=== PATIENT | female | born 1965 | race Caucasian/White ===

== ENCOUNTER 2024-06-16 06:55 | Emergency (ER) | payer OTHER, SELFPAY ==
[2024-06-16 07:01] VITALS: BP 144/111; PULSE 87; RESP 20; TEMP 36; O2SAT 97; BMI 28.2
[2024-06-16] MEDS: Morphine Sulfate Immed Release 15 MG TABLET PO (07:27)
[2024-06-16] MEDS: diazePAM 5 MG TABLET PO (07:27)
--- NOTE | 2024-06-16 07:27 | ED.BACK ---
HPI - Back Pain/Injury General Chief Complaint: Back Pain/Injury Stated Complaint: Back pain Time Seen by Provider: 06/16/24 07:07 Source: patient and family Mode of arrival: ambulatory Limitations: no limitations History of Present Illness ED Provider: KRISTINA BLANCHARD Narrative: 59 yo female with HTN, HLD, DM, fibromyalgia, known back pain and disc disease L3-S1, not on blood thinners, no IVDA here with c/o having known back issues had MRI at start of this year showing disc disease from L3 down - has appointment with spine physician on Thursday. She bent over 3 days ago and felt a pain in back now in spasm not responding to motrin or flexeril. NO loss of control bowel or bladder, no numbness or motor weakness. She is in pain and cannot get comfortable. MD elicited complaint: back pain and back injury Pertinent past history: prior back pain Onset (ago): day(s) (3) Timing: constant Severity: severe Similar Symptoms Previously: Yes Quality: spasming and throbbing Location: lumbar spine Radiation: left upper leg and right upper leg Exacerbating factors: movement, walking, coughing/sneezing and lifting Relieving factors: immobilization Context: while lifting Associated symptoms: denies other symptoms Treatments prior to arrival: NSAIDS Work related injury: No Related Data Previous Rx's ?Medication ?Instructions ?Recorded diazepam 5 mg tablet (Valium) 5 mg PO BID PRN muscle spasm #10 06/16/24 tabs morphine 15 mg immediate release 15 mg PO Q6H PRN pain #10 tabs 06/16/24 tablet Allergies Allergy/AdvReac Type Severity Reaction Status Date / Time No Known Allergies Allergy Unverified 06/16/24 07:06 [No Known Allergies*] Review of Systems Review of Systems: Constitutional : No Weight loss, No Fever, No Chills, ENT/Mouth : No Hearing loss, No Ear Pain, No Nasal Congestion, No Sinus Pain, No Hoarseness, No sore throat, No Rhinorrhea, No Swallowing Difficulty Cardiovascular : No Chest Pain, No SOB Respiratory : No Cough, No Dyspnea Gastrointestinal : No Nausea, No Vomiting, No Diarrhea, No abdominal Pain, No Hematochezia, No Melena Genitourinary : No Dysuria, No Urinary Frequency, No Hematuria, No Urinary Incontinence, Musculoskeletal : positive back pain Skin : No Skin Lesions, No rash Neuro : No Weakness, No Numbness, No Paresthesias, no loss of bowel or bladder incontinence, no saddle anesthesia all other systems reviewed and are negative [facility] Past Medical History Attestation statement: The following information was validated with the patient. Medical History Fibromyalgia Lumbar disc disease Diabetes HTN (hypertension) Social History Social History (Updated 06/16/24 @ 07:32 by Shital Benton DO) Patient Tobacco Use Status: Never used Tobacco Smoked in Last 30 Days: No Use of substances other than those prescribed or required for medical reasons: No Advance Directives: No Advance Directives Information Provided: Yes Do you have a plan to hurt others: No Plan Patient : No Physical Exam Vital Signs: Vital Signs: Last Vital Signs Temp 96.8 F 06/16/24 07:01 Pulse 87 06/16/24 07:01 Resp 20 06/16/24 07:01 BP 144/111 H 06/16/24 07:01 Pulse Ox 97 06/16/24 07:01 O2 Del Method Room Air 06/16/24 07:01 BMI result Body Mass Index 28.2 Appearance: Alert. Oriented X3. No acute distress. in pain Eyes: Pupils equal, round and reactive to light. ENT: Pharynx normal. Neck: Normal inspection. Neck supple. CVS: Normal heart rate and rhythm. Pulses normal. Respiratory: No respiratory distress. Breath sounds normal. Abdomen: Soft and nontender. Back: ttp along posterior lumbar paraspinals Skin: Skin warm and dry. Normal skin color. Normal skin turgor. Extremities: No lower extremity edema. Neuro: Oriented X 3. No motor deficit. No sensory deficit. SILT intact inner thighs 2+ DTR patella, 2+ DP pulses, no clonus, able to move and lift legs Medications Administered Discontinued Medications Generic Name Dose Route Start Last Admin Trade Name Freq PRN Reason Stop Dose Admin Diazepam 5 mg 06/16/24 07:22 06/16/24 07:27 Diazepam 5 Mg Tablet PO 06/16/24 07:23 5 mg ONCE ONE Administration Morphine Sulfate 15 mg 06/16/24 07:22 06/16/24 07:27 Morphine Sulfate Immed Release 15 Mg Tablet PO 06/16/24 07:23 15 mg ONCE ONE Administration Medical Decision Making Medical Decision Making MDM Narrative: 59 yo female with HTN, HLD, DM, fibromyalgia, known back pain and disc disease L3-S1, not on blood thinners, no IVDA here with c/o worsening pain after bending down - no b/b incontinence, no saddle anesthesia, no abdominal pain, NV intact, reflexes intact at this time. No signs of cauda equina or red flags on exam will start on morphine and valium. No falls to suggest fracture or trauma. Has appointment with spine physician on Thursday Differential Diagnosis Differential Diagnoses: The differential diagnosis associated with the presentation includes spasm, strain, disc herniation Admission/Observation Consideration of admission/observation: Escalation of care including admission/observation considered patient feels much better stable for DC Independent Historian Clinical information obtained from an independent historian. History obtained from or confirmed by: Spouse External Record Review External record reviewed: Office record Prescription Management I considered prescription management with: Pain Medication and Other Discharge Plan Discharge Clinical Impression: Lumbar radiculopathy Strain of lumbar region Qualifiers: Encounter type: initial encounter Qualified Code(s): S39.012A - Strain of muscle, fascia and tendon of lower back, initial encounter Patient Disposition: Home, Self-Care Instructions: Low Back Strain (ED), Lumbar Radiculopathy (ED) Additional Instructions: follow up with the spine physician return for worsening pain, loss of control of bowel or bladder, weakness in legs, or any other concerns take it easy, no lifting, go for slow gentle walks Prescriptions: New diazepam [Valium] 5 mg tablet 5 mg PO BID PRN (Reason: muscle spasm) Qty: 10 0RF morphine 15 mg tablet 15 mg PO Q6H PRN (Reason: pain) Qty: 10 0RF Rx Instructions: partial fill okay; Partial Fill upon patient request. Referrals: Antonio Butler MD, PhD [Physician] - Print Language: Mozambican
[2024-06-16 09:15] VITALS: BP 144/111; PULSE 87; RESP 20; TEMP 36; O2SAT 97
== END 2024-06-16 09:26 | disposition home or self-care (01) ==
PROVIDERS: Emergency Provider Emergency Medicine; PCP Internal Medicine
DX: S39.012A Strain of muscle, fascia and tendon of lower back, initial encounter (principal); X50.9XXA Other and unspecified overexertion or strenuous movements or postures, initial encounter; M54.16 Radiculopathy, lumbar region; E11.9 Type 2 diabetes mellitus without complications; I10 Essential (primary) hypertension; E78.5 Hyperlipidemia, unspecified; Y93.89 Activity, other specified; Y92.9 Unspecified place or not applicable; Y99.9 Unspecified external cause status
CPT/HCPCS: 99283; 99284

== ENCOUNTER 2024-06-20 14:30 | Emergency (ER) | payer OTHER, SELFPAY ==
[2024-06-20] VITALS (7 sets, daily range): BP systolic 112–143; BP diastolic 70–83; PULSE 80–97; RESP 16–18; TEMP 36.3–37.4; O2SAT 96–98; BMI 30.8
--- NOTE | ~2024-06-20 | CT_ITS ---
EXAMINATION: CT LUMBAR SPINE WITHOUT CONTRAST CLINICAL INFORMATION: severe right LBP COMPARISON: None available. TECHNIQUE: Axial images obtained through the lumbar spine. Coronal and sagittal reformatted images are performed with CT scan or This CT examination was performed using dose optimization techniques as appropriate, variously including the following: *Automated exposure control *Adjustment of mA and/or kV according to patient size (this includes techniques or standardized protocols for targeted exams where dose is matched to indication/reason for exam; i.e. extremities or head) *Use of iterative reconstruction technique DLP; 563 mGy-cm FINDINGS: Lumbar vertebrae have normal height and alignment. No fracture or bone destruction. Advanced degenerative spondylosis of lumbosacral junction. No paraspinal fluid collection or hematoma. Vascular calcification of aorta without aneurysm. Kidneys are normal. Low attenuation of parenchyma liver consistent with fatty change. Status post cholecystectomy. Diverticulosis of the sigmoid colon without evidence of diverticulitis. Disc levels: T12-L1: No focal disc protrusion. No central canal stenosis. Neural foramina are open. Facet joints are normal. L1-L2:No focal disc protrusion. No central canal stenosis. Neural foramina are open. Facet joints are normal. L2-L3: Mild degenerative circumferential disc bulge.No focal disc protrusion. No central canal stenosis. Neural foramina are open. Facet joints are normal. L3-L4: Moderate circumferential disc bulge. This impresses on the anterior thecal sac with mild central canal stenosis. No focal disc protrusion. Neural foramina are open. Facet joints are normal. L4-L5: Moderate circumferential disc bulge. This impresses on the anterior thecal sac with mild to moderate central canal stenosis. No focal disc protrusion. Neural foramina are open. Facet joints are normal. L5-S1: Severe degenerative change. Bone on bone contact at the endplates with subchondral sclerosis of the L5 and S1 vertebrae. There are anterior and posterior endplate spurs. Posterior spurs do encroaching into the neural foramina bilaterally, left greater than right. Moderate narrowing of the neural foramina bilaterally, left worse than right. CT/CT lumbar spine wo IV con IMPRESSION: 1. No acute abnormality. 2. Advanced degenerative spondylosis of lumbosacral junction. 3. Mild central canal stenosis at L3-L4 and mild to moderate central canal stenosis at L4-L5. 4. Moderate narrowing of the neural foramina bilaterally at L5-S1, left worse than right. Electronically signed by: Amado Soto MD 06/20/2024 10:54 PM EDT RP
--- NOTE | 2024-06-20 16:02 | ED_ITS ---
HPI - Back Pain/Injury General Chief Complaint: Back Pain/Injury Stated Complaint: R FLANK PAIN,SEEN FOR SAME LAST WEEK PER EMS Time Seen by Provider: 06/20/24 15:59 Source: patient and EMS Mode of arrival: EMS Limitations: no limitations History of Present Illness HPI Narrative: Patient is a 59-year-old female with past medical history of hypertension, hyperlipidemia, diabetes, fibromyalgia, acute on chronic lower back pain secondary to reported disc disease L3-S1. She reports onset of pain approximately 1 year ago that has progressively worsened. She had an MRI through [facility] in December of 2023, she has brought with her a disc of the results, unfortunately we are unable to load or access these. She had an outpatient appointment today scheduled with the back specialist; Dr. Butler, unfortunately her pain was too severe that she was unable to get out of bed to go to the appointment. She was seen in the emergency department 4 days ago, she was given a prescription for morphine 15 mg IR tablets and diazepam 5 mg IR tablets which she last took at approximately 08:00 o'clock this morning but she reports no relief. The first 2 days she was having some relief with the medication, but states that she has been needing to crawl around her home she get to and from the bathroom, or slide on the floor with the use of furniture as ambulation has been too painful.. She states that she awoke 3 mornings ago and her pain was much more severe. Pain is localized to the right lower back and radiates down the right lateral hip, anterior thigh, loosely to the knee but worse on the medial knee. She also endorses having numbness felt to her right foot primarily the heel. She endorsed a nursing staff and episode of urinary incontinence, but rather this was urgent continence, her pain was prohibiting her from being able to get to the restroom, but she was well aware that the episode had occurred. She denies any bowel dysfunction. She denies saddle paresthesias. She denies fevers or chills. Denies dysuria, hematuria, urinary frequency/hesitancy. MD elicited complaint: back pain Related Data Previous Rx's ?Medication ?Instructions ?Recorded diazepam 5 mg tablet (Valium) 5 mg PO BID PRN muscle spasm #10 06/16/24 tabs morphine 15 mg immediate release 15 mg PO Q6H PRN pain #10 tabs 06/16/24 tablet Allergies Allergy/AdvReac Type Severity Reaction Status Date / Time adhesive tape Allergy Rash Verified 06/20/24 15:32 Review of Systems 2 Review of Systems: Yes all other systems are reviewed and are negative [facility] Past Medical History Attestation statement: The following information was validated with the patient. Source: old records reviewed Medical History Fibromyalgia Lumbar disc disease Diabetes HTN (hypertension) Social History Social History (Updated 06/16/24 @ 07:32 by Shital Benton DO) Patient Tobacco Use Status: Never used Tobacco Smoked in Last 30 Days: No Use of substances other than those prescribed or required for medical reasons: No Advance Directives: No Advance Directives Information Provided: No Physical Exam 2 Vital Signs: Vital Signs: Last Vital Signs Temp 97.8 F 06/20/24 22:23 Pulse 80 06/20/24 22:23 Resp 16 06/20/24 23:26 BP 112/70 06/20/24 22:23 Pulse Ox 98 06/20/24 22:23 O2 Del Method Room Air 06/20/24 22:23 BMI result Body Mass Index 30.8 Appearance: Alert.?Oriented to person, place and time. No acute distress.?Normal affect. Eyes: Pupils equal, round and reactive to light.? ENT: Pharynx normal.?? Neck: Normal inspection.? Neck supple.?? CVS: Heart sounds normal. Normal heart rate and rhythm.? Pulses normal; bilateral radial pulses 2+, bilateral posterior tibial/dorsalis pedis pulses 2+.? Respiratory: No respiratory distress.? Lung sounds clear to auscultation bilaterally?? Abdomen: Soft and non-tender. Normoactive bowel sounds. No pulsatile mass.?? Skin: Skin warm and dry.? Normal skin color.? Normal skin turgor.?? Extremities: No lower extremity edema.? No calf ttp? Back: + moderate paraspinal muscular tenderness from lumbar region to coccyx. No CVA tenderness. No midline spinal tenderness, step-off's, or deformity. She is in the left side lying position, unable to tolerate lying supine for further evaluation due to degree of pain. No rashes, lesions, areas of induration or fluctuance, or signs of infection noted., Neuro: Moves all extremities spontaneously. Sensation to light touch intact bilaterally. Patellar and Achilles reflex 2+ bilaterally. No focal neuro deficits. Course Reevaluation(s) Reevaluation #1: Patient with minimal relief despite morphine and diazepam. She expresses reservations about continued IV narcotic medications. However she is unable to move from a supine position on the stretcher without having severe pain. She has used muscle relaxants in the past including cyclobenzaprine for muscle spasm in the neck. She is amenable to trialing this at this time. Given the severity of her pain in extensive limited mobility, will obtain CT at this time. Reevaluation #2: CT of the lumbar spine reveals advanced degenerative spondylosis, mild central canal stenosis at L3-L4 and mild to moderate stenosis at L4-L5, moderate narrowing of the neural foramina bilaterally at L5-S1 left worse than right. Plan for management with Lyrica, Robaxin, and prednisone with morphine IR PRN. Placed in physician observation for physical therapy evaluation and case management given her degree of pain in immobility. No respiratory distress. Vital signs stable. Patient is agreeable to plan. I did discuss this case with the hospitalist, Dr. Roberson possible admission due to intractable pain, did not feel that patient met inpatient criteria at this time. Medications Administered Discontinued Medications Generic Name Dose Route Start Last Admin Trade Name Freq PRN Reason Stop Dose Admin Cyclobenzaprine HCl 10 mg 06/20/24 21:24 06/20/24 22:00 Cyclobenzaprine Hcl 10 Mg Tablet PO 06/20/24 21:25 10 mg ONCE ONE Administration Diazepam 5 mg 06/20/24 16:19 06/20/24 17:15 Diazepam 5 Mg Tablet PO 06/20/24 16:20 5 mg ONCE ONE Administration Morphine Sulfate 4 mg 06/20/24 16:19 06/20/24 17:15 Morphine Sulfate 4 Mg/Ml Cartridge IVPUSH 06/20/24 16:20 4 mg ONCE ONE Administration Protocol Morphine Sulfate 4 mg 06/20/24 19:53 06/20/24 20:27 Morphine Sulfate 4 Mg/Ml Cartridge IVPUSH 06/20/24 19:54 4 mg ONCE ONE Administration Protocol Ondansetron HCl 4 mg 06/20/24 17:09 06/20/24 17:15 Ondansetron Hcl 4 Mg/2 Ml Vial IVPUSH 06/20/24 17:10 4 mg ONCE ONE Administration Potassium Chloride 40 meq 06/20/24 18:17 06/20/24 19:01 Potassium Chloride Packet 20 Meq Packet PO 06/20/24 18:18 40 meq ONCE ONE Administration Medical Decision Making Medical Decision Making [facility] Narrative: Patient is a 59-year-old female with past medical history of hypertension, hyperlipidemia, diabetes, fibromyalgia, acute on chronic lower back pain with known disc disease at L3-S1 as per HPI. Unfortunately she was not able to attend her appointment with a spinal specialist today due to worsening of her pain. Pain is localized to the right lower back with radicular symptoms. No midline tenderness or areas of fluctuance. No neurological deficits on examination. There may be a muscular component to her pain although I can not completely exclude herniated disc that has worsened or if there is any acute changes I do not have access to her prior imaging. Not consistent with spinal fracture, spinal infection, epidural abscess, AAA, epidural abscess, or dissection. No high risk past medical history including incontinence, fever, immunosuppression, recent surgery or lumbar puncture, coagulopathy, significant trauma, recent unintentional weight loss, pulsatile mass, history of cancer, history of TB, history of IV drug use that would warrant emergent MRI Not consistent with ectopic , pyelonephritis, urinary tract infection, renal calculi, pelvic infection, appendicitis, diverticulitis. Will trial pain management with morphine IV and diazepam Differential Diagnosis Differential Diagnoses: The differential diagnosis associated with the presentation includes ( see narrative above) Admission/Observation Consideration of admission/observation: Escalation of care including admission/observation considered ( see narrative above) Lab Data [facility] Lab Attestation statement: I reviewed the patient's lab results. CBC is without leukocytosis anemia or thrombocytopenia. Mild hypokalemia 3.0. No ROXY. Mildly elevated LFT benign abdominal examination, likely hepatic steatosis, do not suspect acute hepatobiliary etiology lipase is within normal range. Urinalysis without evidence of infection or microscopic hematuria. 06/20/24 17:07 06/20/24 17:07 Labs: Lab Results 06/20/24 06/20/24 Range/Units 17:07 19:42 WBC 9.3 (4.8-10.8) X10*3/uL RBC 4.86 (4.20-5.50) X10*6/uL Hgb 13.5 (12.0-16.0) g/dl Hct 39.2 (37.0-47.0) % MCV 80.7 (80.0-98.0) fL MCH 27.8 (27.0-33.0) pg MCHC 34.4 (31.0-35.0) g/dl RDW 13.9 (11.0-16.0) % Plt Count 327 (160-400) X10*3/uL MPV 9.4 (9.4-12.3) fL Immature Gran % (Auto) 0.2 (0.0-0.4) % Neut % (Auto) 44.9 L (45-73) % Lymph % (Auto) 44.5 H (20-40) % Grayson % (Auto) 7.9 (2-11) % Eos % (Auto) 1.9 (0-4) % Baso % (Auto) 0.6 (0-2) % Lymph # (Auto) 4.1 (1.2-4.9) X10*3/uL Grayson # (Auto) 0.7 (0.1-1.2) X10*3/uL Eos # (Auto) 0.2 (0.0-0.4) X10*3/uL Baso # (Auto) 0.1 (0.0-0.2) X10*3/uL Abs Immat Gran (auto) 0.02 (0.00-0.03) X10*3/uL Absolute Neuts (auto) 4.2 (2.0-8.3) x10*3/uL Absolute Nucleated RBC 0.000 (0.0-0.012) X10*3/uL Nucleated RBC % (auto) 0.0 (0.0-0.2) /100WBC Sodium 136 (135-145) mmol/L Potassium 3.0 L (3.3-5.1) mmol/L Chloride 94 L (96-108) mmol/L Carbon Dioxide 27 (22-29) mmol/L Anion Gap 18 (12-20) BUN 17 H (9-16) mg/dL Creatinine 0.75 (0.5-1.4) mg/dL Estim Creat Clear Calc 82.3 Estimated GFR > 60 Random Glucose 122 H (60-115) mg/dL Calcium 10.4 H (8.4-10.2) mg/dL Total Bilirubin 0.5 (0.0-1.0) mg/dL AST 85 H (5-31) U/L ALT 180 H (0-31) U/L Alkaline Phosphatase 100 (39-117) U/L Total Protein 7.9 (6.5-8.0) g/dL Albumin 4.6 (3.5-5.0) g/dL Lipase 59 (8-78) U/L Urine Color Yellow Urine Appearance Clear Urine pH 6.0 (5.0-9.0) Ur Specific [place] 1.015 (1.005-1.025) Urine Protein Negative (Neg-Trace) mg/dL Urine Glucose (UA) Negative (Negative) mg/dL Urine Ketones 40 (Negative) mg/dL Urine Blood Negative (Negative) Urine Nitrite Negative (Negative) Ur Leukocyte Esterase Negative (Negative) Radiology Impression Discussion of test interpretation with radiology: I have reviewed the radiologist's reading. Radiologist Impression: CT/CT lumbar spine wo IV con IMPRESSION: 1. No acute abnormality. 2. Advanced degenerative spondylosis of lumbosacral junction. 3. Mild central canal stenosis at L3-L4 and mild to moderate central canal stenosis at L4-L5. 4. Moderate narrowing of the neural foramina bilaterally at L5-S1, left worse than right. Independent Historian Clinical information obtained from an independent historian. History obtained from or confirmed by: EMS External Record Review External record reviewed: Outpatient record Prescription Management I considered prescription management with: Pain Medication Critical Care Time Critical Care Time Critical Care Time: Yes Total Critical Care Time: 50 Attestation: I personally attest to this critical care time spent taking care of the patient exclusive of all other billable procedures was approximately 50 minutes including initial evaluation of patient, ordering tests, IV morphine and re- evaluation, medical consultation, documentation, re-evaluation. Discharge Plan Discharge Clinical Impression: Lumbar radiculopathy Patient Disposition: Still a Patient Prescriptions: No Action diazepam [Valium] 5 mg tablet 5 mg PO BID PRN (Reason: muscle spasm) Qty: 10 0RF morphine 15 mg tablet 15 mg PO Q6H PRN (Reason: pain) Qty: 10 0RF Rx Instructions: partial fill okay; Partial Fill upon patient request. Print Language: Jordanian
[2024-06-20 17:15] LABS: MANUAL DIFF FLAG NO
[2024-06-20] MEDS: diazePAM 5 MG TABLET PO (17:15)
[2024-06-20] MEDS: ondansetron HCL 4 MG/2 ML VIAL IVPUSH (17:15)
[2024-06-20] MEDS: Morphine Sulfate 4 MG/ML CARTRIDGE IVPUSH ×2 (17:15→20:27)
[2024-06-20 17:17] LABS: Basophils Absolute Auto 0.1 X10*3/uL (0.0-0.2); Basophils Percent Auto 0.6 % (0-2); Eosinophils Absolute Auto 0.2 X10*3/uL (0.0-0.4); Eosinophils Percent Auto 1.9 % (0-4); Hematocrit 39.2 % (37.0-47.0); Hemoglobin 13.5 g/dl (12.0-16.0); Imm Gran Abs Auto 0.02 X10*3/uL (0.00-0.03); Imm Gran Pct Auto 0.2 % (0.0-0.4); Lymphocytes Absolute Auto 4.1 X10*3/uL (1.2-4.9); Lymphocytes Percent Auto 44.5 % (20-40); Mean Corpuscular HGB Conc 34.4 g/dl (31.0-35.0); Mean Corpuscular Hemoglobin 27.8 pg (27.0-33.0); Mean Corpuscular Volume 80.7 fL (80.0-98.0); Mean Platelet Volume 9.4 fL (9.4-12.3); Monocytes Absolute Auto 0.7 X10*3/uL (0.1-1.2); Monocytes Percent Auto 7.9 % (2-11); Neutrophils Absolute Auto 4.2 x10*3/uL (2.0-8.3); Neutrophils Percent Auto 44.9 % (45-73); Platelet Count 327 X10*3/uL (160-400); Red Blood Count 4.86 X10*6/uL (4.20-5.50); Red Cell Distribution Width 13.9 % (11.0-16.0); White Blood Count 9.3 X10*3/uL (4.8-10.8)
[2024-06-20 17:36] LABS: Alanine Aminotransferase 180 U/L (0-31); Albumin Level 4.6 g/dL (3.5-5.0); Alkaline Phosphatase 100 U/L (39-117); Anion Gap 18 (12-20); Aspartate Amino Transferase 85 U/L (5-31); Bilirubin Total 0.5 mg/dL (0.0-1.0); Blood Urea Nitrogen 17 mg/dL (9-16); Calcium 10.4 mg/dL (8.4-10.2); Carbon Dioxide 27 mmol/L (22-29); Chloride 94 mmol/L (96-108); Creatinine Clr Calc Pharmacy 82.3; Estimated Glomerular Filt Rate > 60; Glucose Random 122 mg/dL (60-115); Sodium 136 mmol/L (135-145); Total Protein 7.9 g/dL (6.5-8.0)
[2024-06-20 18:43] LABS: Lipase 59 U/L (8-78)
[2024-06-20] MEDS: Potassium Chloride Packet 20 MEQ PACKET 40 MEQ PO (19:01)
--- NOTE | 2024-06-20 19:45 | PC.NURSE ---
Patient assisted to the bathroom via stretcher to obtain urine sample. pt reports increased back pain and states she cannot get up and will need to use the bedpain. pain assisted on/off bedpan. tearful, crying in pain. provider aware
[2024-06-20 20:00] LABS: Appearance Urine Clear; Color Urine Yellow; Glucose Urine UA Negative (Negative); Leukocyte Esterase Urine Negative (Negative); Nitrite Urine Negative (Negative); Specific Gravity - Urine 1.015 (1.005-1.025); Urine Blood Negative (Negative); Urine Ketones 40 mg/dL (Negative); Urine Protein Negative (Neg-Trace)
[2024-06-20] MEDS: Cyclobenzaprine HCl 10 MG TABLET PO (22:00)
--- NOTE | 2024-06-20 22:24 | PC.NURSE ---
Patient awake and alert. skin pwd, resp even and non labored. speaking in full, clear sentences. continues with 8/10 back pain, patient able to reposition herself on stretcher, grimacing noted. awaiting results of CT.
--- NOTE | 2024-06-20 23:50 | PC.NURSE ---
assumed care of pt at 2315. report received from Umm SARGENT
[2024-06-21] VITALS (7 sets, daily range): BP systolic 121–154; BP diastolic 80–87; PULSE 78–87; RESP 16–20; TEMP 36.2–37.2; O2SAT 92–95
[2024-06-21] MEDS: methocarbamoL 750 MG TABLET PO ×4 (02:21→22:03)
[2024-06-21] MEDS: Pregabalin 50 MG CAPSULE PO (02:21)
[2024-06-21] MEDS: predniSONE 20 MG TABLET PO (02:21)
--- NOTE | 2024-06-21 03:48 | PC.NURSE ---
pt is resting comfortably on stretcher in no apparent distress, respirations even and unlabored. purewick in place. call kirkpatrick within reach, plan for PT/CM in morning.
[2024-06-21] MEDS: Morphine Sulfate Immed Release 15 MG TABLET PO ×2 (07:54→18:50)
[2024-06-21] MEDS: Pregabalin 25 MG CAPSULE PO ×3 (08:46→20:39)
--- NOTE | 2024-06-21 08:52 | PC.NURSE ---
patient resting quietly in bed, respirations equal and unlabored, skin dry and intact, VSS, plan of care on going
--- NOTE | 2024-06-21 11:11 | MHC.CM.ED ---
Addendum entered by Ryann Church 06/21/24 14:32: [facility] bed. [facility] and [facility] reviewing. Patient aware and accepts bed at [facility] has been asked to obtain insurance auth. Original Note: Received case management consult overnight. Patient came to the ER due to back pain for 1 week. Work up essentially negative. Physical therapy eval completed. Per eval, patient would benefit from respite until able to follow up with spine doctor. Met with patient in regards to discharge planning. Patient lives with her daughter. However, her daughter is not home much and is unable to help her at home. Patient ambulates independently and had no services prior to coming to the hospital. PCP verified. Copy of HCP requested from [facility]. Patient has never been to [facility]. Patient agreeable to referral being broadcasted locally to determine bed availability and then picking a facility. Referral made roselia Khan. Continue to monitor for d/c needs.
[2024-06-21 11:27] LABS: COVID-19 Test Negative (Negative); IDNOW Serial# 08D9AD1C
--- NOTE | 2024-06-21 13:12 | PC.NURSE ---
PT ABLE TO ROLL INDEPENDENTLY TO USE A BED LANTIGUA TO VOID. SHE HAS FULL BLADDER CONTROL. SHE STATES HER PAIN REQUIRES MORE MEDICATION. PRIMARY RN AWARE
--- NOTE | 2024-06-21 15:15 | PHA.MEDREC ---
Addendum entered by Zhang Naik RPh 06/21/24 15:17: Reviewed by [facility]. Original Note: Pharmacy Consult ? Medication Reconciliation Pharmacy has completed the medication reconciliation. Spoke to patient to confirm med list. Patient had her bottles of medications with her. patient was able to confirm all her medications.
--- NOTE | 2024-06-21 18:29 | MHC.EDTECH ---
Patient was set up with dinner ate 75 % of meal and drank 240 ml fluids ,Patient was assisted unto bedside commode ,void and a lg bowel movement ,care given and bedding change ,call kirkpatrick within pt reach .
[2024-06-21] MEDS: metFORMIN HCl ER 500 MG TAB.ER.24H PO (20:39)
--- NOTE | 2024-06-21 21:48 | PC.NURSE ---
Spoke with Sanjiv in Pharmacy. Requested Methocarbamol 750mg to be brought to overflow bed 2. Unavailable in Overflow ED Pyxis. Medication to be administered upon arrival.
--- NOTE | 2024-06-21 22:04 | MHC.EDTECH ---
Patient was assisted unto bedside commode ,void ,and back to bed ,Patient was in excrewating pain ,rn aware .
--- NOTE | 2024-06-21 22:05 | PC.NURSE ---
Pt ambulated to commode with the assistance of ABBIE Naylor. While returning to bed, pt experienced a muscle spasm in lower back with excrutiating pain. Pt was bent over the bed. With assistance, able to reposition the patient supine back into the bed. During this episode, pharmacy arrived with the patient's remaining nighttime medication, which was administered as ordered for muscle spasms. Pt stated that the pain increased to a 10 while up, but that she's proud of herself for being able to use the commode finally. States that pain is decreasing now that she is supine. Care ongoing.
[2024-06-21] MEDS: Zolpidem Tartrate 5 MG TABLET 10 MG PO (23:56)
--- NOTE | 2024-06-22 00:48 | PC.NURSE ---
Took report from off-going RN at 2300 hrs. Pt is a 59 y/o female who presents from home via EMS on 06/20 for evaluation of back pain. Pt suffered an injury last Thursday while bending down, was seen here this past and diagnosed with L3 slipped disc. Has been taking morphine and valium at home with no relief. Now experiencing pain down right leg, ongoing spasms in back, and difficulty with ambulation. One episode of urinary incotinence with reported injury. Pt is alert and oriented, calm, cooperative, and appropriate with staff. Verbalizes needs. Skin is W/P/D and no acute distress is observed. Uses a bedpan for toileting. Has 20G in right AC, flushes well with no indication of pain or signs of infiltration. Plan is placement in short-term rehab at [facility], or ? Respite. Will continue to monitor for any changes.
[2024-06-22] MEDS: diazePAM 5 MG TABLET PO (01:01)
[2024-06-22] MEDS: Morphine Sulfate Immed Release 15 MG TABLET PO ×2 (01:06→08:50)
--- NOTE | 2024-06-22 02:25 | PC.NURSE ---
Pt is sleeping, right lateral recumbent in bed, appears comfortable. Arousable with verbal stimuli. Verbalizes needs appropriately. No acute distress observed
[2024-06-22 05:21] VITALS: BP 124/77; PULSE 79; RESP 16; TEMP 36; O2SAT 93
[2024-06-22] MEDS: Omeprazole 20 MG CAPSULE.DR PO (07:25)
--- NOTE | 2024-06-22 08:15 | MHC.EDTECH ---
Assist patient with bed chris and personal hygiene.
[2024-06-22 08:47] VITALS: BP 137/91; PULSE 78; RESP 20; TEMP 36.6; O2SAT 95
[2024-06-22 08:50] VITALS: BP 137/91
[2024-06-22] MEDS: Magnesium Oxide 400 MG TABLET PO (08:50)
[2024-06-22] MEDS: lisinopriL 20 MG TABLET PO (08:50)
[2024-06-22] MEDS: hydroCHLOROthiazide 25 MG TABLET PO (08:50)
[2024-06-22] MEDS: metFORMIN HCl ER 500 MG TAB.ER.24H PO ×2 (08:50→20:34)
[2024-06-22] MEDS: buPROPion HCl XL 300 MG TAB.ER.24H PO (08:50)
[2024-06-22] MEDS: Pregabalin 25 MG CAPSULE PO ×3 (08:51→20:34)
[2024-06-22] MEDS: Atorvastatin Calcium 40 MG TABLET PO (08:51)
[2024-06-22] MEDS: methocarbamoL 750 MG TABLET PO ×3 (10:20→20:34)
--- NOTE | 2024-06-22 12:08 | PC.NURSE ---
patient appears to be asleep, respirations equal and unlabored, skin dry and intact. patient lunch at bedside for when she wakes up.
--- NOTE | 2024-06-22 14:28 | MHC.CM.ED ---
Patient remains in ER overflow. Will go to [facility] when ins auth obtained. Patient aware. Continue to monitor for d/c needs.
[2024-06-22 17:09] VITALS: BP 118/78; PULSE 89; RESP 20; TEMP 37.1; O2SAT 96
[2024-06-22 17:09] LABS: Glucose, Whole Blood 165 mg/dL (60-115)
[2024-06-22 17:09] LABS: Glucose, Whole Blood 143 mg/dL (60-115)
[2024-06-22 19:14] VITALS: BP 137/73; PULSE 88; RESP 17; TEMP 37; O2SAT 93
--- NOTE | 2024-06-22 19:15 | PC.NURSE ---
this RN assumed care of pt, pt resting in stretcher, no acute distress noted. pt denies pain at this time. vss.
[2024-06-22] MEDS: SITagliptin Phosphate 25 MG TABLET PO (20:34)
--- NOTE | 2024-06-22 20:36 | PC.NURSE ---
pt medicated per mar, tolerated well with water.
[2024-06-22] MEDS: Acetaminophen 325 MG TABLET 975 MG PO (22:05)
--- NOTE | 2024-06-22 22:07 | PC.NURSE ---
pt assisted off bed chris with one assist, pt assisted with changing pads under. pt reports 5/10 headache and requesting only tylenol at this time.
[2024-06-23 05:09] VITALS: BP 156/87; PULSE 91; RESP 20; TEMP 36.6; O2SAT 95
[2024-06-23] MEDS: Morphine Sulfate Immed Release 15 MG TABLET PO ×2 (05:09→11:35)
[2024-06-23] MEDS: Omeprazole 20 MG CAPSULE.DR PO (06:24)
--- NOTE | 2024-06-23 07:24 | MHC.EDTECH ---
This tech assumed care of patient at 0645, patient is asleep in bed. No apparent distress at this time.
[2024-06-23 07:53] LABS: Glucose, Whole Blood 161 mg/dL (60-115)
[2024-06-23 08:35] VITALS: BP 133/83
[2024-06-23] MEDS: Magnesium Oxide 400 MG TABLET PO (08:35)
[2024-06-23] MEDS: Atorvastatin Calcium 40 MG TABLET PO (08:35)
[2024-06-23] MEDS: methocarbamoL 750 MG TABLET PO ×2 (08:35→14:13)
[2024-06-23] MEDS: buPROPion HCl XL 300 MG TAB.ER.24H PO (08:35)
[2024-06-23 08:36] VITALS: BP 133/82
[2024-06-23] MEDS: Pregabalin 25 MG CAPSULE PO ×2 (08:36→14:13)
[2024-06-23] MEDS: metFORMIN HCl ER 500 MG TAB.ER.24H PO (08:36)
[2024-06-23] MEDS: hydroCHLOROthiazide 25 MG TABLET PO (08:36)
[2024-06-23 08:37] VITALS: BP 133/83
[2024-06-23] MEDS: lisinopriL 20 MG TABLET PO (08:37)
--- NOTE | 2024-06-23 08:46 | PC.NURSE ---
Pt alert and oriented, breathing even and unlabored. Took morning meds with no issues. Pain 7/10 in lower back, reports PRN morphine is helping. Plan of care ongoing, waiting for insurance auth for Kate mora CM.
--- NOTE | 2024-06-23 13:11 | MHC.CM.ED ---
Insurance auth has been obtained. Miley ROMERO booked for 3pm. Med nec with chart. Patient, Mari SARGENT and Cheryl THOMAS aware. Continue to monitor for d/c needs.
[2024-06-23] MEDS: Ibuprofen 600 MG TABLET PO (14:14)
[2024-06-23] MEDS: diazePAM 5 MG TABLET PO (14:14)
[2024-06-23 14:39] VITALS: BP 112/75; PULSE 88; RESP 16; TEMP 37; O2SAT 95
[2024-06-23 15:28] VITALS: BP 112/75; PULSE 88; RESP 16; TEMP 37; O2SAT 95
== END 2024-06-23 17:00 ==
PROVIDERS: Nurse Practitioner Family; Physician Assistant Medical; Emergency Provider Emergency Medicine; PCP Internal Medicine
DX: M54.16 Radiculopathy, lumbar region (principal); M54.50 Low back pain, unspecified; R32 Unspecified urinary incontinence; R53.83 Other fatigue; R26.2 Difficulty in walking, not elsewhere classified; Z11.52 Encounter for screening for COVID-19; Z79.899 Other long term (current) drug therapy
CPT/HCPCS: 36415; 72131; 80053; 81003; 82947; 83690; 85025; 87635; 96374; 96375; 96376; 97163; 99285; J2270; J2405

== ENCOUNTER 2024-07-04 10:59 | Outpatient (AMB) | payer OTHER, SELFPAY ==
--- NOTE | 2024-07-04 11:18 | HO.SPINEOV ---
Intake Visit Reasons: ED f/u Intake Note: Ms. Lim is here for an Emergency Room follow up. MRI done @ [facility]. Oracle Database Consultant Required: No Allergies adhesive tape Allergy (Verified 06/20/24 15:32) Rash Assessment & Plan Assessment & Plan (1) Back pain: Code(s): M54.9 - Dorsalgia, unspecified Category: Medical Plan Dear Nara, Mrs. Lim came into the office today for follow-up after she was in the emergency room recently. She is a 59-year-old female with fibromyalgia who has had back pain and right leg pain since last June. She tells me she has had chronic issues with her low back for years but the right leg pain started sometime last fall. It starts from her low back radiates down into her lateral thigh, wraps around her knee and then will go down into her calf. On and off she has been more less disabled by this pain since last year. She uses a wheelchair to get around her house. She has intermittent flare-ups which will leave her significantly disabled. She had been taking ibuprofen, doing ice packs. Recently in the emergency room they had given her Valium and morphine. The Valium seemed to help a lot. She ultimately ended up in a assisted it sounds like it during 1 of her recent trips to the emergency room. She had a lumbar MRI done at [facility] last year showing a degenerative disc at L5-S1 with some foraminal narrowing. She came in today after the emergency room visit as part of her follow-up. She had done physical therapy for awhile for this problem. No cortisone injections , chiropractic etc.. PMH: Fibromyalgia, low potassium, hypertension, diabetes. Her diabetes usually fairly well controlled with her A1c around 7, anxiety, depression, IBS, migraines, carpal tunnel, cholecystectomy Social hx: She has not smoke, drink use any recreational drugs Medications: Ambien, lisinopril, hydrochlorothiazide, Wellbutrin XL, metformin, ibuprofen, omeprazole, atorvastatin, Januvia, MiraLax, Tylenol Allergies: Tape Physical exam: She is awake alert oriented, she uses a wheelchair to get around the office. She is able to stand up out of the chair on her own, neurological exam is limited by aches and pains just trying to move or manipulate her legs. I do not detect any focal neurological weakness. Reflexes are intact. No clonus, no Lake's sign. Imaging review: Lumbar MRI at [facility] this past October shows severe degenerative disc disease at L5-S1 with bilateral neural foraminal stenosis. Otherwise rest of the lumbar spine otherwise looks okay Impression: 59-year-old female following up from the emergency room a few weeks ago. She was therefore flare-up of the back pain and right leg pain that she has had since last year. She seems to have on and off flare-ups, at times he has can be quite debilitating. Her situation is compounded by her fibromyalgia. She does have a degenerative disc at L5-S1, and some foraminal stenosis but typically these do not cause severe flare-ups that send people to the emergency room. I think her hypersensitivity to pain is making the situation more complicated than what the imaging suggests. I will repeat the MRI to see if anything has changed. I will see her back after it is completed. Thank you for allowing us to care for your patient. The total time spent with this visit with this patient was 45 minutes reviewing history, physical exam, lumbar imaging review, and implementation of treatment plan or further diagnostic testing Cezar Butler MD,PhD [facility] Coding Level of Care Code New Pt Level 4 (76453) Diagnoses Back pain M54.9
== END 2024-07-04 12:09 | disposition home or self-care (01) ==
PROVIDERS: PCP Internal Medicine; Visit Provider Physician Assistant
DX: M54.9 Dorsalgia, unspecified (principal)
CPT/HCPCS: 99204

== ENCOUNTER → 2024-07-04 10:59 | Outpatient (BNVA) | payer OTHER, SELFPAY | PROVIDERS: PCP Internal Medicine; Visit Provider Physician Assistant | DX: M54.9 Dorsalgia, unspecified (principal); M79.7 Fibromyalgia | CPT/HCPCS: 99202 ==

== ENCOUNTER 2024-07-15 13:55 | Outpatient (AMB) | payer OTHER, SELFPAY ==
[2024-07-15 14:04] VITALS: BP 132/76; PULSE 85; O2SAT 98
--- NOTE | 2024-07-15 14:04 | A.OFFVIS_ITS ---
Vital Signs 07/15/24 14:04 BP 132/76 Blood Pressure Location Rt brachial Position Sitting Pulse 85 Pulse Source Pulse Oximeter Pulse Oximetry (%) 98 Oxygen Delivery Method Room Air Intake Visit Reasons: Chronic Low Back Pain Allergies adhesive tape Allergy (Verified 07/15/24 14:04) Rash Medication List - Last Reconciled 07/15/24 by Eboni Waldron acetaminophen 1,000 mg PO Q6H PRN bupropion HCl XL 300 mg PO DAILY diazepam (Valium) 5 mg PO BID PRN ibuprofen 600 mg PO TID PRN lisinopril-hydrochlorothiazide 20-25 mg 1 tab PO DAILY loratadine-pseudoephedrine 10-240 mg ER (AllerClear D-24hr) 1 tab PO DAILY PRN magnesium oxide 400 mg PO DAILY metformin ER 500 mg PO BID morphine 15 mg PO Q6H PRN morphine 15 mg PO Q6H PRN 3 days omeprazole 20 mg PO DAILY@0630 rosuvastatin 10 mg PO DAILY sitagliptin phosphate (Januvia) 25 mg PO DAILY zolpidem (Ambien) 10 mg PO BEDTIME PRN HPI Comments Details: Yessica is a very pleasant 59-year-old female who presents the office today for evaluation management of her chronic lower back pain. Patient states she has been suffering with this pain since April of 2023, recently got worse approximately 1 month ago which required evaluation in the emergency room She underwent CT scan, results as per below In the emergency room she was given morphine and Valium. States the Valium did provide her some relief. She was then discharged to a prison facility which she expected to be more of a rehab but ended up a penitentiary. After one-week she left after signing herself out. While she was at the rehab she did physical therapy and by the end of the time she was able to walk with a walker but since discharge she has not been doing physical therapy any longer. [facility] she has a follow up MRI pending. After that MRI she will follow up with their office to determine if there is a need for surgical intervention. PCP has placed an order for physical therapy, she is awaiting appointment to start Currently taking Tylenol and Motrin with limited improvement of her pain. She has been offered gabapentin in the past but it has not to try due to its side effects. She would be willing to try Lyrica. Currently prescribed cyclobenzaprine, states takes only as needed which will improve some of her discomfort. Endorses midline lower back pain with radiation down the right leg to the foot. At times it will feel like a rubber band is squeezing around the top of her knee. Also endorses some cramping and tightening of her muscles in her lower leg. Denies red flag symptoms including loss of bowel, bladder or saddle anesthesia Denies history of chiropractor, acupuncture, massage or previous attempts at injections In terms of muscle damage condition is described as throbbing, pounding, pinching, cramping, tiring, spreading, tight, squeezing, stabbing Pain is negatively impacting patient's enjoyment of life, general activity, sleep, ability to care for self, ability to function normally. She at times is significantly disabled, requiring use of a wheelchair to even get around the house. 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 Denies implantable devices, pacemaker or defibrillator Denies current use of anticoagulants Denies current use of nicotine, tobacco, alcohol or illicit substances Past medical history significant for chronic back pain, fibromyalgia, headaches, fatigue, dizziness, diabetes, gallstones, arthritis, hypertension, depression, high cholesterol, acid reflux [facility] Medical History (Updated 07/15/24 @ 15:34 by Macarena Milian APRN, [employer]SHORE WIND TURBINE TECHNICIAN) Fibromyalgia Lumbar disc disease Diabetes HTN (hypertension) Social History (Updated 06/16/24 @ 07:32 by Shital Benton DO) Patient Tobacco Use Status: Never used Tobacco Review of Systems Const All systems reviewed & are unremarkable except as noted in HPI and below Physical Exam Vital Signs: Last Vital Signs Pulse 85 07/15/24 14:04 BP 132/76 07/15/24 14:04 Pulse Ox 98 07/15/24 14:04 Oxygen Delivery Method Room Air 07/15/24 14:04 General: awake, alert, oriented. Answers questions appropriately. Fully engaged in examination. Skin: warm, dry, intact HEENT: Normocephalic. Hearing intact. Cardiac: External chest normal in appearance. Respiratory: No cough, audible wheezing or stridor. Abdomen: without gross distension. MS: No obvious swelling or deformities. Able to transition from sit to stand unassisted. Tenderness to palpation midline lumbar vertebrae lumbar paraspinal muscle SLR positive on the right Bilateral lower extremity strength 5/5 Negative footdrop, negative clonus Nontender over bilateral PSIS Ga[place] negative bilaterally Thigh thrust negative bilaterally Neurological: Oriented to person, place, time and situation. Thought process intact. Using wheelchair, maneuvering it with her feet Psychiatric: Appropriate mood and affect. Good judgment and insight. Results Reviewed Results Reviewed: 06/20/24 CT lumbar spine: FINDINGS: Lumbar vertebrae have normal height and alignment. No fracture or bone destruction. Advanced degenerative spondylosis of lumbosacral junction. No paraspinal fluid collection or hematoma. Vascular calcification of aorta without aneurysm. Kidneys are normal. Low attenuation of parenchyma liver consistent with fatty change. Status post cholecystectomy. Diverticulosis of the sigmoid colon without evidence of diverticulitis. Disc levels: T12-L1: No focal disc protrusion. No central canal stenosis. Neural foramina are open. Facet joints are normal. L1-L2:No focal disc protrusion. No central canal stenosis. Neural foramina are open. Facet joints are normal. L2-L3: Mild degenerative circumferential disc bulge.No focal disc protrusion. No central canal stenosis. Neural foramina are open. Facet joints are normal. L3-L4: Moderate circumferential disc bulge. This impresses on the anterior thecal sac with mild central canal stenosis. No focal disc protrusion. Neural foramina are open. Facet joints are normal. L4-L5: Moderate circumferential disc bulge. This impresses on the anterior thecal sac with mild to moderate central canal stenosis. No focal disc protrusion. Neural foramina are open. Facet joints are normal. L5-S1: Severe degenerative change. Bone on bone contact at the endplates with subchondral sclerosis of the L5 and S1 vertebrae. There are anterior and posterior endplate spurs. Posterior spurs do encroaching into the neural foramina bilaterally, left greater than right. Moderate narrowing of the neural foramina bilaterally, left worse than right. IMPRESSION: 1. No acute abnormality. 2. Advanced degenerative spondylosis of lumbosacral junction. 3. Mild central canal stenosis at L3-L4 and mild to moderate central canal stenosis at L4-L5. 4. Moderate narrowing of the neural foramina bilaterally at L5-S1, left worse than right. Assessment & Plan Assessment & Plan (1) Fibromyalgia: Code(s): M79.7 - Fibromyalgia Category: Medical (2) Lumbar disc disease: Code(s): M51.9 - Unspecified thoracic, thoracolumbar and lumbosacral intervertebral disc disorder Category: Medical Plan Patient presents the office today for evaluation and management of her chronic lower back pain MRI pending through neuro spine Will start on Lyrica 50 mg p.o. twice daily. Patient advised on cautions for use Diclofenac 50 mg p.o. twice daily as needed. Take with food, do not take with any other nonsteroidal anti-inflammatory medications. Patient was advised that she should limit the use of the wheelchair as it only contributes to weakening of her muscles and overall decline in her mobility. Prescription for Rollator walker sent to [facility]. All questions and concerns were answered, patient agrees with the plan. She will follow up with neuro spine after MRI. Follow up in our office pending neuro spine treatment plan. Medications: New walker (Ultra-Light Rollator misc) As directed 1 ea 0RF pregabalin (Lyrica) 50 mg PO BID 60 caps 3RF diclofenac potassium Take with food, do not take with any other nonsteroidal anti-inflammatory medications. Discontinue ibuprofen prior to taking this medication 50 mg PO BID PRN 60 tabs 3RF pain Coding Level of Care Code New Pt Level 4 (98650) Complex EM visit Add On G2211 Diagnoses Fibromyalgia M79.7 Lumbar disc disease M51.9
== END 2024-07-15 15:06 | disposition home or self-care (01) ==
PROVIDERS: PCP Internal Medicine; Referring Provider Internal Medicine; Visit Provider Registered Nurse Emergency
DX: M79.7 Fibromyalgia (principal); M51.9 Unspecified thoracic, thoracolumbar and lumbosacral intervertebral disc disorder
CPT/HCPCS: 99204; G2211

== ENCOUNTER → 2024-07-15 13:55 | Outpatient (BNVA) | payer OTHER, SELFPAY | PROVIDERS: PCP Internal Medicine; Referring Provider Internal Medicine; Visit Provider Registered Nurse Emergency | DX: M54.50 Low back pain, unspecified (principal); M79.7 Fibromyalgia; M51.9 Unspecified thoracic, thoracolumbar and lumbosacral intervertebral disc disorder; G89.29 Other chronic pain | CPT/HCPCS: 99202 ==

== ENCOUNTER 2024-07-22 12:55 | Outpatient (AMB) | payer OTHER, SELFPAY ==
--- NOTE | 2024-07-22 13:15 | HO.SPINEOV ---
Intake Visit Reasons: MRI f/up Intake Note: Ms. Lim is here today to F/u on the results to her MRI. Accounting Teacher Required: No Allergies adhesive tape Allergy (Verified 07/22/24 13:18) Rash Assessment & Plan Assessment & Plan (1) Lumbar disc herniation: Code(s): M51.26 - Other intervertebral disc displacement, lumbar region Category: Medical Plan Mrs Lim is back in the office to follow-up after her MRI. The imaging was done at [facility] and it does show that she has an acute herniated disc in the extraforaminal component of the right L3-4 disc compressing the right L3 nerve root. This would fit with her anterior thigh pain that she was recently having. Fortunately, she is here in the office today in his telling me she is about 70% better. I told her that she should just continue to keep her activities light, that she does not need to go for injections or physical therapy and that the disc is reabsorbed being on its own so she should just continue to let this heal on its own. She does not need surgery either. The rest of her spine, specifically the L5-S1 disc is severely collapsed left L5 foraminal stenosis but I do not think she is symptomatic from it. Total amount of time spent in this visit was 20 minutes in discussion of symptoms, lumbar imaging results and subsequent plan of care Cezar Bulter MD,PhD [facility] Coding Level of Care Code Est Pt Level 3 (52929) Diagnoses Lumbar disc herniation M51.26
== END 2024-07-22 14:45 | disposition home or self-care (01) ==
PROVIDERS: PCP Internal Medicine; Visit Provider Physician Assistant
DX: M51.26 Other intervertebral disc displacement, lumbar region (principal)
CPT/HCPCS: 99213

== ENCOUNTER → 2024-07-22 12:55 | Outpatient (BNVA) | payer OTHER, SELFPAY | PROVIDERS: PCP Internal Medicine; Visit Provider Physician Assistant | DX: M51.26 Other intervertebral disc displacement, lumbar region (principal) | CPT/HCPCS: 99212 ==

== ENCOUNTER 2025-07-03 10:54 | Outpatient (AMB) | payer OTHER, SELFPAY ==
--- NOTE | 2025-07-03 11:04 | HO.SPINEOV ---
Intake Visit Reasons: LBP/Left leg pain Intake Note: Ms. Lim is here today c/o Low back pain/Leg Pain Child Care Assistant Required: No Allergies adhesive tape Allergy (Verified 07/03/25 11:05) Rash Assessment & Plan Assessment & Plan (1) Lumbar disc herniation: Code(s): M51.26 - Other intervertebral disc displacement, lumbar region Category: Medical Plan Mrs Lim is here in follow-up. She is a patient known to us from herniated disc on the right at L2-3 last year as well as degenerative disc disease at L5-S1. About 6 weeks ago she was helping her mother at a doctor's visit and during the x-ray that was taken at that time, she was asked by 1 of the x-ray tech in the office to hold the flat plate during the x-ray and the awkward position she was in caused her to feel a new pain in her left low back. By the next day was radiating down into her left posterolateral thigh going into her outer calf. She also started feeling tingling in her left foot. She already had some baseline issues with her back so she tried the more traditional things that generally work for her including Motrin, Tylenol, muscle relaxers etc.. Unfortunately the pain has persisted despite these conservative treatments. She has not done any physical therapy yet, no injections etc.. On exam she is uncomfortable, has a hard time getting up on the table but can do it independently albeit slowly, positive straight leg raise at about 30 degrees. Strength in the lower extremities is normal, reflexes absent. Impression: I am concerned that the patient has herniated a disc in the setting of her already degenerative spine. I am going to order lumbar MRI. The patient prefers an open MRI because she is claustrophobic. I told her out prescribe her an anxiolytic before hand to help her get through it. She could not recall the 1 she has used in the past with good success so I told her to give me a call when she finds out what it was at her pharmacy and I would prescribe it for her. I will see her back after the MRIs completed. Total amount of time spent in this visit was 20 minutes in discussion of symptoms, ordering imaging and subsequent plan of care Cezar Butler MD,PhD [facility] Orders: Orders MR lumbar spine wo con Today M51.26 - Other intervertebral disc displacement, lumbar region Coding Level of Care Code Est Pt Level 3 (74187) Diagnoses Lumbar disc herniation M51.26
--- OUTSIDE RECORDS SUMMARY | 2025-07-03 13:32 | XMS_ITS | Encounter Summary ---
Author Organization [facility] Address [address] [place] [id number] Phone Care Team Providers Care Gunner'S Mate Name Role Phone YayoyuesivaMark tena Primary Care Provider [phone] Encounter Details Date Type Department Care Team (Late st Contact Info) Description 06/29/2024 Transcribe Orders [facility] [address] [place], [place] [id number] John Griggs MD [address] [place] [id number] .ne t Routine adult health maintenance (Primary Dx) Social History Tobacco Use Types Packs/Day Years Used Date Smoking Tobacco: Never Assessed Education Answer Date Recorded Are you interested in more education? Not on eva e 02/06/2023 Are you concerned about learning? Not on file 02/06/2023 No 02/06/2023 No 02/06/2023 Digital Access Answer Date Recorded No 03/07/2023 No 03/07/2023 Reliable internet access at home? Not on file 03/07/2023 Device with a working camera? Not on file Comments Unknown Sex and Gender Information Value Date Recorded Sex Assigned at Not on file Legal Sex Female 12:19 PM EST Gender Identity Not on file Sexual Orientation Not on file documented as of this encounter Plan of Treatment Not on file documented as of this encounter Procedures Procedure Name Priority Date/Time Associated Diagnosis Comments CBC Routine 06/29/2024 11:47 AM EDT Routine adult health maintenance BASIC METABOLIC PANEL Routine 06/29/2024 11:47 AM EDT Routine adult health maintenance documented in this encounter Results * CBC (06/29/2024 11:47 AM EDT) WBC 6.56 4.00 - 11.00 K/uL [facility] RBC 4.58 3.72 - 5.30 M/uL [facility] HGB 12.7 11.4 - 15.9 g/dL [facility] HCT 38.5 34.2 - 46.8 % [facility] PLT 333 140 - 430 K/uL [facility] MCV 84.1 78.0 - 97.0 fL [facility] MCH 27.7 25.0 - 33.0 pg [facility] MCHC 33.0 32.0 - 36.0 g/dL [facility] RDW 13.9 11.0 - 16.0 % [facility] MPV 10.6 8.4 - 12.8 fl [facility] 06/29/2024 11:4 7 AM EDT 06/29/2024 12:45 PM EDT us John Griggs MD LAB BLOOD ORDERABLES Kirsten cardozo Result Performing Organization Address City/State/[facility] Co de Phone Number [address] [address] * (ABNORMAL) Basic metabolic panel (06/29/2024 11:47 AM EDT) Pathologist [facility] SODIUM 131(L) 133 - 146 mmol/L [facility] CHLORIDE 90(L) 96 - 108 mmol/L [facility] POTASSIUM 4.3 3.3 - 5.1 mmol/L [facility] CO2 29 21 - 35 mmol/L [facility] BUN 13 6 - 19 mg/dL [facility] CREATININE 0.60 0.5 - 1.5 mg/dL [facility] GLUCOSE 172(H) 70 - 99 mg/dL [facility] CALCIUM 10.3 8.4 - 10.3 mg/dL [facility] EGFR 105 >59 mL/min/1.7 3m2 [facility] Comment:Estimated glomerular filtration rate calculated using the CKD-EPI refit equation. ANION GAP 16 10 - 20 mmol/L [facility] 06/29/2024 11:4 7 AM EDT 06/29/2024 12:45 PM EDT us John Griggs MD LAB BLOOD ORDERABLES Kirsten l Result Performing Organization Address City/State/[facility] Co de Phone Number [facility] [address] [place] [address] documented in this encounter Visit Diagnoses Diagnosis Routine adult health maintenance- Primary documented in this encounter Care Teams Gunner'S Mate Relationship Specialty Start Date End Date Mark Johnson DO [address] [place] [phone] PCP - General Internal Medicine 11/09/19 documented as of this encounter Additional Source Comments The information contained in this document represents components of the legal health record. It is not the complete legal health record.[facility]
--- OUTSIDE RECORDS SUMMARY | 2025-07-03 13:33 | XMS_ITS | Clinical Summary ---
Author Organization [facility] Address [address] [facility] [address] [place] [address] Phone Care Team Providers Care Energy Advisor Name Role Phone Mark Johnson DO Primary Care Provider [phone] Medications loratadine-pseu doephedrine (CLARITIN-D 24-HOUR) 10-240 mg per 24 hr tablet Take 1 tablet by mouth daily. Active omeprazole (PRILOSEC) 20 MG capsule Take 20 mg by mouth daily. Active buPROPion (WELLBUTRIN XL) 300 MG ER 24 hr tablet Take 300 mg by mouth daily. Active ibuprofen (ADVIL,MOTRIN) 600 MG tablet Take 600 mg by mouth 3 (three) times a day as needed. Active lisinopril-hydr oCHLOROthiazide (PRINZIDE,ZESTO RETIC) 20-25 mg per tablet Take 1 tablet by mouth daily. Active zolpidem (AMBIEN) 10 mg tablet Take 10 mg by mouth nightly at bedtime as needed. Active Active Problems Problem Noted Date Diagnosed Date Other insomnia 02/03/2020 Assessment & Plan (02/04/2020 11:45 AM EDT): Sleep hygiene. Listen to relaxation tapes. Regular meditation sessions. Take melatonin as it appears helpful. If worsening, not better consider formal sleep study. Fibromyalgia 02/03/2020 Assessment & Plan (02/04/2020 11:51 AM EDT): Based on the patient's history and review of the available laboratory results, I believe that fibromyalgia is the most accurate diagnosis. We discussed the diagnosis of fibromyalgia, its natural history, and treatment. Specifically, we discussed that treatment requires many interventions and recognition that we are often unable to get patients completely pain free. Management of fibromyalgia requires patient engagement to address any underlying depression, anxiety, or sleep disorder. Further, patients are encouraged to engage in regular physical activity. Some studies have suggested that Tomás Chi is effective. Other physical activity may including water-based aerobics, walking, biking, swimming, gentle yoga, Pilates etc. In terms of pharmacotherapy, there are many options, including tricyclic antidepressants, duloxetine, gabapentin or pregabalin, and cyclobenzaprine as well as other similar medications to those listed. At this time, she requires no further rheumatology work-up but I am happy to see the patient again if anything changes clinically. She requested follow-up in 3 months. I advised her to focus on nonpharmacologic measures more since she has multiple medication intolerances and reports nice improvement with focusing on clues from daily experiences and modifying appropriately. She would benefit from reading book written by Dr Nader Rivero [facility] catastrophe living addressing management strategies for patients with fibromyalgia utilizing mindfulness approach. Gastroesophageal reflux disease without esophagi tis 02/03/2020 Assessment & Plan (02/04/2020 11:51 AM EDT): Avoid late, large, spicy meals. Keep headboard elevated at 45 angle for nighttime. Secondary hypertension 02/03/2020 Assessment & Plan (02/04/2020 11:45 AM EDT): Continue antihypertensive therapy as prescribed. Aim at BP= 120/80 mmHg Recurrent major depressive disorder, in partial remission 02/03/2020 Assessment & Plan (02/04/2020 11:53 AM EDT): Continue antidepressants as prescribed. Regular follow-up with prescribing psychiatrist and psychotherapist as scheduled. Utilize regular relaxation/meditation, positive imagery, CBT, DNRS etc. PTSD (post-traumatic stress disorder) 02/03/2020 Assessment & Plan (02/04/2020 11:54 AM EDT): Avoid known triggers. Close follow-up with psychotherapist as scheduled. Irritable bowel syndrome wit h both constipation and diarrhea 02/03/2020 Assessment & Plan (02/04/2020 11:52 AM EDT): Eat smaller, well-balanced nutritionally meals 4-5 times daily preferably at scheduled times. Keep well-hydrated. Consider formal GI evaluation if unable to manage. Social History Tobacco Use Types Packs/Day Years [...] on file Sexual Orientation Not on file Plan of Treatment Health Maintenance Due Date Last Done Comments BLOOD PRESSURE 1967 LIPID PANEL 1967 DEPRESSION SCREENING 1979 SMOKING Hx and SMOKELESS TOBACCO SCREENING 01/27/1980 HEPATITIS C SCREENING 1985 HIV ONE-TIME SCREENING (18-6 5 YEARS) 1985 PAP SMEAR 01/27/1988 MAMMOGRAM 2007 COLOGUARD 01/27/2012 COLONOSCOPY 01/27/2012 COLORECTAL CANCER SCREENING 01/27/2012 FIT TEST 01/27/2012 FOBT 01/27/2012 SIGMOIDOSCOPY 01/27/2012 VIRTUAL COLONOSCOPY 01/27/2012 PNEUMOCOCCAL VACCINES (50+ years) (1 of 1 - PCV) 2017 ZOSTER VACCINES (1 of 2) 2017 INFLUENZA VACCINE (#1) 2025 , 08/03/2013, 07/09/2012 COVID-19 VACCINE (2 - 2024-2 6 season) 2025 03/08/2021 CREATININE LEVEL 06/29/2025 06/29/2024, 06/28/2024, 06/27/2024 POTASSIUM LEVEL 06/29/2025 06/29/2024, 06/28/2024, 06/27/2024 Adult Td,Tdap Booster 06/13/2027 06/13/2017 HEPATITIS A VACCINES Aged Out No long er eligible based on patient's age to complete this topic HIB VACCINES Aged Out No longer eligi ble based on patient's age to complete this topic MENINGOCOCCAL VACCINES (ACWY) Aged Out No longer eligible based on patient's age to complete this topic MENINGOCOCCAL VACCINES (B) Aged Out N o longer eligible based on patient's age to complete this topic Medical Devices Not on file Procedures Procedure Name Priority Date/Time Associated Diagnosis Comments BASIC METABOLIC PANEL Routine 06/29/2024 11:47 AM EDT Routine adult health maintenance from Last 3 Months or Most Recently Relevant to Health Maintenance Results * (ABNORMAL) Basic metabolic panel (06/29/2024 11:47 AM EDT) SODIUM 131(L) 133 - 146 mmol/L [facility] CHLORIDE 90(L) 96 - 108 mmol/L [facility] POTASSIUM 4.3 3.3 - 5.1 mmol/L [facility] CO2 29 21 - 35 mmol/L [facility] BUN 13 6 - 19 mg/dL [facility] CREATININE 0.60 0.5 - 1.5 mg/dL [facility] GLUCOSE 172(H) 70 - 99 mg/dL [facility] CALCIUM 10.3 8.4 - 10.3 mg/dL [facility] EGFR 105 >59 mL/min/1.7 3m2 [facility] Comment:Estimated glomerular filtration rate calculated using the CKD-EPI refit equation. ANION GAP 16 10 - 20 mmol/L [facility] 06/29/2024 11:4 7 AM EDT 06/29/2024 12:45 PM EDT us John Griggs MD LAB BLOOD ORDERABLES Kirsten cardozo Result [address] [address] from Last 3 Months or Most Recently Relevant to Health Maintenance Insurance MEDICARE PART A [place] [id number] MEDICARE PART A & [place] [address] [place] [id number] MEDICARE PART A [place] [id number] [facility]ICARE [facility] [place] [address] MEDICARE PART A [place] [id number] MEDICARE PART A & [facility] [place] [id number] MEDICARE PART A & [place] [id number] MEDICARE PART A [place] [address] MEDICARE PART A & B [facility] Care Teams Energy Advisor Relationship Specialty Start Date End Date Mark Johnson DO [address] [place] [address] [address] [place] [address] PCP - General Internal Medicine 11/09/19 Additional Source Comments The information contained in this document represents components of the legal health record. It is not the complete legal health record.[facility]
--- OUTSIDE RECORDS SUMMARY | 2025-07-03 13:33 | XMS_ITS | Patient Health Record ---
Author Organization [facility] Address [address] [place] [address] Care Team Providers Care Aed Trainer Name Role Phone Mark Johnson MD Primary Care Provider Gilbert Garcia Unavailable [phone] Reason For Referral No Information Medications Medication SIG (Take, Route, Frequency, Duration) Notes Start Date End Date Status Ambien 10 MG 1 tablet at bedtime as needed Orally Once a day Active Effexor XR 225 mg 1 capsule with food Orally Once a day; Duration: 30 day(s) Active Lisinopril-hydroCHLOROthia zide 20-12.5 MG 1 tablet Orally Once a day; Duration: 30 day(s) Active Ibuprofen 800 MG 1 tablet Orally Thre e times a day; Duration: 30 day(s) Active Walker AIRCAST as directed DX: fx 5 th mt shaft 08/11/2012 Active Wellbutrin XL 300 MG 1 tablet in the mor adarsh Orally Once a day; Duration: 30 day(s) Active Problems Problem Type SNOMED Code ICD Code Onset Dates Problem Status W/U Status Risk Notes Problem Disorder of joint of ankle and/or foot (489349219) Arthritis - Degenerative (719.97) Active confirmed Problem Congenital pes planus (99655477) Flat Foot, Congenital (754.61) Active confirmed Problem Closed fracture of foot (850911805) Fx Foot (825.20) Active confirmed Problem Pain in limb (93150837) Pain in Limb (729.5) Active confirmed Plan Of Treatment Pending Test Test Name Order Date X ray : Foot, left 3V 09/17/2012 X ray : Foot, left 3V 08/11/2012 [id number] Boot/Pneumatic 08/11/2012 Insurance Providers Payer Name Payer Address Payer Phone Subscriber Number Group Number Insured Name Patient Relationship to Insured Coverage Start Date Coverage End Date Medicare [employer] [address] [place] [address] [id number] PHOEBE GILL Self - patient is the insured Medical (General) History Medical History History ICD Code L5 S1 ruptured disc Surgical History Surgery Date(Month/Year) foot surgery-rt pins 1999 section 1996 & 2004 gall bladder 2006 Hospitalization History Reason Date(Month/Year) Patient went to [facility] ER for left foot i njury. 08/05/2012
--- OUTSIDE RECORDS SUMMARY | 2025-07-03 13:33 | XMS_ITS | Clinical Summary ---
Author Organization [facility] [address] [facility] Address [address] [place] [address] Phone Care Team Providers Care Lockstitch Machine Operator Name Role Phone KimMark tena Primary Care Provider [phone] Allergies No known active allergies Medications zolpidem (AMBIEN) 10 mg tablet Take by mouth at bedtime as needed for sleep. Active buPROPion XL (WELLBUTRIN XL) 300 mg 24 hr tablet Take 1 tablet (300 mg total) by mouth 1 (one) time each day in the morning. Active loratadine (CLARITIN) 10 mg tablet Take 1 tablet (10 mg total) by mouth 1 (one) time each day. Active lisinopril-hydr oCHLOROthiazide (PRINZIDE,ZESTO RETIC) 20-25 mg per tablet Take 1 tablet by mouth 1 (one) time each day. Active magnesium oxide (MAG-OX) 400 mg magnesium tablet Take 1 tablet (400 mg total) by mouth 1 (one) time each day. Active omeprazole 20 mg tablet,disinteg rat, delay rel Take by mouth. Active ibuprofen (ADVIL,MOTRIN) 600 mg tablet Take 1 tablet (600 mg total) by mouth every 6 (six) hours if needed. Active potassium chloride 20 mEq tablet extended release Take by mouth. Activ e metFORMIN XR (GLUCOPHAGE-XR) 500 mg 24 hr tablet Take 1 tablet (500 mg total) by mouth 2 (two) times a day with meals. 180 tablet 1 5 Active SITagliptin phosphate (Januvia) 50 mg tablet Take 1 tablet (50 mg total) by mouth 1 (one) time each day. 30 each 11 5 03/15/20 26 Active lancets 30 gauge misc Check blood sugar 1 times a day or as directed 100 each 11 5 Active blood-glucose meter (OneTouch Ultra2 Meter) misc Use to check BS daily 1 kit 5 Active OneTouch Ultra Test test strip Use to check BS daily 100 each 12 5 03/16/20 26 Active lancets 30 gauge misc Check blood sugar once a day or as directed 50 each 1 5 Active glucose blood test strip Check blood sugar once a day or as directed 50 each 5 03/28/20 26 Active blood-glucose meter kit Use daily or as directed for monitoring of diabetes - *One Touch meter* 1 each 5 03/28/20 26 Active Social History Tobacco Use Types Packs/Day Years Used Date Smoking Tobacco: Never Smokeless Tobacco: Never Comments Unknown Sex and Gender Information Value Date Recorded Sex Assigned at Not on file Legal Sex Female 12:53 AM EST Gender Identity Not on file Sexual Orientation Not on file Obstetrics History Last Filed Vital Signs Vital Sign Reading Time Taken Comments Blood Pressure 121/86 12/08/2023 3:38 PM EST Aut o Cuff Pulse 81 12/08/2023 3:38 PM EST Temperature - - Respiratory Rate - - Oxygen Saturation - - Inhaled Oxygen Concentration - - Weight 76.8 kg (169 lb 6.4 oz) 12/08/2023 3:38 P M EST Height 160 cm (5' 3 ) 12/08/2023 3:38 PM EST Body Mass Index 30.01 12/08/2023 3:38 PM EST Plan of Treatment Upcoming Encounters Date Type Department Care Team (Late st Contact Info) Description 07/19/2025 11:15 AM EDT Office Visit Endocrinology - [address] [phone] Dali Varela PA [address] [place] [address] Health Maintenance Due Date Last Done Comments Breast Cancer Screening 1967 Diabetes: Annual Foot Exam 1977 Diabetes: Annual Retina Eye Exam 1977 Hepatitis B Vaccines (1 of 3 - 19+ 3-dose series) 1986 Pneumococcal Vaccine: 50+ Years (1 of 2 - PCV) 1986 Cervical Cancer Screening: Pap Smear 01/27/1988 Zoster Vaccines (1 of 2) 2017 Colorectal Cancer Screening: Colonoscopy 09/14/2022 HIV Screening 09/14/2022 Hepatitis C Screening 09/14/2022 Medicare Annual Wellness Visit 09/14/2022 Social Influencers of Health Screening 09/14/2022 Depression Screening 10/12/2024 COVID-19 Vaccine ( season) 2025 03/08/2021, 02/05/2021 Influenza Vaccine (#1) 2025 , 08/03/2013, 07/09/2012, Additional history exists Diabetes: Blood Sugar Control Test (HGBA1C) 11/04/2025 05/04/2025, 01/11/2025, 12/09/2023 Diabetes: Annual Urine Albumin-Creatinine Ratio (uACR) 01/11/2026 01/11/2025 Diabetes: Annual GFR (Glomerular Filtration Rate) 01/11/2026 01/11/2025, 06/27/2024, 12/08/2023 Hypertension/CHF/CAD Annual BMP Blood Test 01/11/2026 01/11/2025, 06/27/2024, 12/08/2023 DTaP,Tdap,and Td Vaccines (2 - Td or Tdap) 06/13/2027 06/13/2017 Cholesterol Screening (Lipid Panel) 01/11/2030 01/11/2025 HIB Vaccines Aged Out No longer eligi ble based on patient's age to complete this topic HPV Vaccines Aged Out No longer eligi ble based on patient's age to complete this topic Hepatitis A Vaccines Aged Out No long er eligible based on patient's age to complete this topic IPV Vaccines Aged Out No longer eligi ble based on patient's age to complete this topic MMR Vaccines Aged Out No longer eligi ble based on patient's age to complete this topic Meningococcal ACWY Vaccine Aged Out N o longer eligible based on patient's age to complete this topic Meningococcal B Vaccine Aged Out No l onger eligible based on patient's age to complete this topic RSV Immunization Patients Under 20 months Aged Out No longer eligible based on patient's age to complete this topic Varicella Vaccines Aged Out No longer eligible based on patient's age to complete this topic Procedures Procedure Name Priority Date/Time Associated Diagnosis Comments ASPARTATE AMINOTRANSFERASE Routine 05/04/2025 12:09 PM EDT DM (diabetes mellitus) ([facility] V24, [facility] V28) Elevated ALT measurement HTN (hypertension) ALANINE AMINOTRANSFERASE Routine 025 12:09 PM EDT DM (diabetes mellitus) ([facility] V24, [facility] V28) Elevated ALT measurement HTN (hypertension) HEMOGLOBIN A1C Routine 05/04/2025 12:09 PM EDT DM (diabetes mellitus) ([facility] V24, [facility] V28) Elevated ALT measurement HTN (hypertension) MICROALBUMIN CREATININE URINE RATIO Routine 01/11/2025 2:48 PM EDT Routine general medical examination at a health care facility Hyperlipemia Essential hypertension, malignant Diabetes mellitus ([facility]/HCC V24, [facility]/HCC V28) BASIC METABOLIC PANEL Routine 01/11/2025 2:48 PM EDT Routine general medical examination at a health care facility Hyperlipemia Essential hypertension, malignant Diabetes mellitus ([facility] V24, [facility]/HCC V28) LIPID PANEL WITH REFLEX TO DIRECT LDL Routine 01/11/2025 2:48 PM EDT Routine general medical examination at a health care facility Hyperlipemia Essential hypertension, malignant Diabetes mellitus ([facility] V24, [facility]/HCC V28) from Last 3 Months or Most Recently Relevant to Health Maintenance Results * Alanine aminotransferase (05/04/2025 12:09 PM EDT) ALT (SGPT) 34 10 - 60 unit/L LAB CHEMISTRY METHOD 05/04/2025 4:24 PM EDT [facility] Blood Venous blood specimen / Unknown Venipuncture / Unknown 05/04/2025 12:09 PM EDT 05/04/2025 12:09 PM EDT Burton Lee LAB BLOOD ORDERABLES Final Resul t [facility] [address] [place] [address], [place] [phone] * Aspartate aminotransferase (05/04/2025 12:09 PM EDT) [facility] AST (SGOT) 19 10 - 42 unit/L LAB CHEMISTRY METHOD 05/04/2025 4:24 PM EDT [facility] Blood Venous blood specimen / Unknown Venipuncture / Unknown 05/04/2025 12:09 PM EDT 05/04/2025 12:09 PM EDT Burton Lee LAB BLOOD ORDERABLES Final Resul t Performing Organization Address [facility]/ZIP Co de Phone Number [facility] [address] [place] [address], [place] [phone] * (ABNORMAL) Hemoglobin A1c (05/04/2025 12:09 PM EDT) [facility] Hemoglobin A1C 6.6(H) <6.5 % LAB CHEMISTRY METHOD 05/04/2025 10:11 PM EDT [facility] Mean Bld Glu Estim. 143 mg/dL LAB CHEMISTRY METHOD 05/04/2025 10:11 PM EDT [facility] Blood Venous blood specimen / Unknown Venipuncture / Unknown 05/04/2025 12:09 PM EDT 05/04/2025 12:09 PM EDT Burton Phoenix LAB BLOOD ORDERABLES Final Resul t [facility] [address] [place] [address], [place] [phone] * (ABNORMAL) Lipid panel with reflex to direct LDL (01/11/2025 2:48 PM EDT) Cholesterol 173 0 - 200 mg/dL LAB CHEMISTRY METHOD 01/11/2025 9:09 PM EDT [facility] Triglycerides 268(H) 0 - 150 mg/dL LAB CHEMISTRY METHOD 01/11/2025 9:09 PM EDT [facility] HDL 61 >=40 mg/dL LAB CHEMISTRY METHOD 01/11/2025 9:09 PM EDT [facility] LDL Calculated 58 0 - 100 mg/dL LAB CHEMISTRY METHOD 01/11/2025 9:09 PM EDT [facility] VLDL Cholesterol Richard 53.6 mg/dL LAB CHEMISTRY METHOD 01/11/2025 9:09 PM EDT [facility] Non HDL Chol. (LDL+VLDL) 112 <145 mg/dL LAB CHEMISTRY METHOD 01/11/2025 9:09 PM EDT [facility] Chol/HDL Ratio 2.8 0.0 - 4.4 LAB CHEMISTRY METHOD 01/11/2025 9:09 PM EDT [facility] Blood Venous blood specimen / Unknown Venipuncture / Unknown 01/11/2025 2:48 PM EDT 01/11/2025 2:48 PM EDT Burton Vazquez LAB BLOOD ORDERABLES Final Resul t [facility] [address] [place] [address], [place] [phone] * Microalbumin creatinine urine ratio (01/11/2025 2:48 PM EDT) Creatinine, Urine 54.0 mg/dL LAB CHEMISTRY METHOD 01/11/2025 10:30 PM EDT [facility] Microalb, Ur 6.7 0.0 - 29.0 mg/L LAB CHEMISTRY METHOD 01/11/2025 10:30 PM [facility] Microalb/Creat Ratio 12 <30 mg/g creat LAB CHEMISTRY METHOD 01/11/2025 10:30 PM [facility] Urine Urine specimen obtained by clean catch procedure / Unknown Non-blood Collection / Unknown 01/11/2025 2:48 PM EDT 01/11/2025 2:48 PM EDT us Burton George LAB URINE ORDERABLES Final Resul t [facility] [address] [place] [address], [place] [phone] * (ABNORMAL) Basic metabolic panel (01/11/2025 2:48 PM EDT) Sodium 137 133 - 145 mmol/L LAB CHEMISTRY METHOD 01/11/2025 9:07 PM [facility] Potassium 4.3 3.5 - 5.5 mmol/L LAB CHEMISTRY METHOD 01/11/2025 9:07 PM [facility] Chloride 99 96 - 110 mmol/L LAB CHEMISTRY METHOD 01/11/2025 9:07 PM [facility] CO2 32 21 - 32 mmol/L LAB CHEMISTRY METHOD 01/11/2025 9:07 PM [facility] Anion Gap 6 3 - 11 LAB CHEMISTRY METHOD 01/11/2025 9:07 PM [facility] Glucose 123(H) 70 - 100 mg/dL LAB CHEMISTRY METHOD 01/11/2025 9:07 PM [facility] BUN 12 5 - 25 mg/dL LAB CHEMISTRY METHOD 01/11/2025 9:07 PM [facility] Creatinine 0.57 0.50 - 1.10 mg/dL LAB CHEMISTRY METHOD 01/11/2025 9:07 PM EDT [facility] eGFR 106 >=60 mL/min/1. 73m2 LAB CHEMISTRY METHOD 01/11/2025 9:07 PM EDT [facility] Comment:Calculation based on the Chronic Kidney Disease Epidemiology Collaboration (CKD-EPI) equation refit without adjustment for race. BUN/Creatinine Ratio 21.1 LAB CHEMISTRY METHOD 01/11/2025 9:07 PM EDT [facility] Calcium 10.3 8.5 - 10.5 mg/dL LAB CHEMISTRY METHOD 01/11/2025 9:07 PM EDT [facility] Blood Venous blood specimen / Unknown Venipuncture / Unknown 01/11/2025 2:48 PM EDT 01/11/2025 2:48 PM EDT us Burton Vazquez LAB BLOOD ORDERABLES Final Resul t [facility] [address] [place] [address], from Last 3 Months or Most Recently Relevant to Health Maintenance Insurance [facility] MEDICARE Member Subscriber Plan / Payer (Ef fective 2020-Present) Name:PHOEBE BOSTON Relation to Subscriber:Self Name:Phoebe Boston Payer ID:[id number] Group ID:[id number] Type:Not on file Address: [address] [facility] [place] [address] Care Teams Lockstitch Machine Operator Relationship Specialty Start Date End Date Mark Johnson DO [address] [place] [id number] PCP - General Internal Medicine 07/11/14
== END 2025-07-03 11:34 | disposition home or self-care (01) ==
LOC: HO.HNS 10:54
PROVIDERS: PCP Internal Medicine; Visit Provider Physician Assistant
DX: M51.26 Other intervertebral disc displacement, lumbar region (principal)
CPT/HCPCS: 99213

== ENCOUNTER → 2025-07-03 10:54 | Outpatient (BNVA) | payer OTHER, SELFPAY | PROVIDERS: PCP Internal Medicine; Visit Provider Physician Assistant | DX: M51.26 Other intervertebral disc displacement, lumbar region (principal) | CPT/HCPCS: 99212 ==